=== PATIENT | male | born 1970 | race Caucasian/White ===

== ENCOUNTER 2019-02-07 05:34 | Observation (INO) | payer OTHER, MEDICAID ==
[2019-02-07] MEDS ORDERED: EPHEDrine SULFATE 50 MG/5 ML SYG (07:00)
[2019-02-07] MEDS ORDERED: MIDAZOLAM 1 MG/ML 2 ML INJ (07:34)
[2019-02-07] MEDS ORDERED: ROCURONIUM 50 MG INJ (07:34)
[2019-02-07] MEDS ORDERED: HYDROmorphONE 2 MG/ML SYG ×2 (07:34→07:35)
[2019-02-07] MEDS ORDERED: PROPOFOL 20 ML (07:34)
[2019-02-07] MEDS ORDERED: CEFAZOLIN 1 GM INJ (07:34)
[2019-02-07] MEDS ORDERED: DEXAMETHASONE 4 MG/ML 5 ML INJ (08:05)
[2019-02-07] MEDS ORDERED: METOCLOPRAMIDE 10 MG INJ (08:05)
[2019-02-07] MEDS ORDERED: ONDANSETRON 4 MG INJ (08:05)
[2019-02-07] MEDS ORDERED: FENTAnyl 50 MCG/ML VIAL IV ×3 (08:30)
[2019-02-07] MEDS ORDERED: METOCLOPRAMIDE 10 MG INJ IV (08:30)
[2019-02-07] MEDS ORDERED: DIPHENHYDRAMINE 50 MG INJ IV (08:30)
[2019-02-07] MEDS ORDERED: OXYCODONE/ACETAMINOPHEN (5/325) TAB PO ×2 (08:30)
[2019-02-07] MEDS ORDERED: HYDROmorphONE 1 MG/5 ML IV SYRINGE IV ×3 (08:30)
[2019-02-07] MEDS ORDERED: EPHEDrine SULFATE 50 MG/5 ML SYG IV (08:30)
[2019-02-07] MEDS ORDERED: MEPERIDINE 25 MG INJ IV (08:30)
[2019-02-07] MEDS ORDERED: ONDANSETRON 4 MG INJ IV ×2 (08:30→10:00)
[2019-02-07] MEDS ORDERED: LABETALOL HCL 20MG INJ IV (08:30)
[2019-02-07] MEDS: GELATIN SIZE 100 SPONGE (08:46)
[2019-02-07] MEDS: BUPIVACAINE 0.5%/EPI (SDV) 30 ML INJ (08:46)
[2019-02-07] MEDS: THROMBIN (BOVINE) 5,000 UNIT VIAL TP (08:47)
[2019-02-07] MEDS: POLYMYXIN/BACITRACIN 1L IRRIG (08:47)
[2019-02-07] MEDS: HEMOSTATIC MATRIX SYG ZFS (08:47)
[2019-02-07] MEDS: BETAMET NA PHOS/AC(6 MG/ML) 5ML INJ (09:03)
[2019-02-07] MEDS ORDERED: SUGAMMADEX SODIUM 200 MG/2 ML VIAL IV (09:27)
[2019-02-07] MEDS ORDERED: PROCHLORPERAZINE 10 MG TAB PO (10:00)
[2019-02-07] MEDS ORDERED: HYDROmorphONE 0.5 MG/0.5 ML SYG IV (10:00)
[2019-02-07] MEDS ORDERED: NALOXONE (0.4 MG/ML) INJ IV (10:00)
[2019-02-07] MEDS ORDERED: ACETAMINOPHEN 325 MG TAB PO (10:00)
[2019-02-07] MEDS ORDERED: NACL 0.9% 3 ML SYG IV (10:00)
[2019-02-07] MEDS ORDERED: HYDROCODONE/APAP (5/325) TAB PO ×2 (10:00)
== END 2019-02-07 12:30 | disposition home or self-care (01) ==
LOC: SDS 05:34 → REC 12:30 → SDS 05:34 → REC 12:30 → SDS 09:44 → REC 10:31
DX: M51.16 Intervertebral disc disorders with radiculopathy, lumbar region (principal)
CPT/HCPCS: 63030; 72100; 88304; 97161; 99217